=== PATIENT | male | born 1960 | race Caucasian/White ===

== ENCOUNTER 2022-04-16 07:49 | Outpatient (CLI) | payer BC | END 2022-04-16 07:50 | disposition home or self-care (01) | LOC: CSHRAD 07:49 | PROVIDERS: ATTEND Orthopaedic Surgery | DX: M54.50 Low back pain, unspecified (principal); M54.16 Radiculopathy, lumbar region; M47.816 Spondylosis without myelopathy or radiculopathy, lumbar region | CPT/HCPCS: 72100 ==

== ENCOUNTER 2022-05-14 07:54 | Outpatient (CLI) | payer BC | END 2022-05-14 07:55 | disposition home or self-care (01) | LOC: CSHMRI 07:54 | PROVIDERS: ATTEND Orthopaedic Surgery | DX: M54.50 Low back pain, unspecified (principal); M54.16 Radiculopathy, lumbar region; M47.816 Spondylosis without myelopathy or radiculopathy, lumbar region; M48.061 Spinal stenosis, lumbar region without neurogenic claudication | CPT/HCPCS: 72148 ==